=== PATIENT | female | born 1995 | race Caucasian/White ===

== ENCOUNTER 2017-05-09 14:19 | Emergency (ER) | payer BC ==
[2017-05-09 15:05] VITALS: BP 118/71
--- NOTE | 2017-05-09 16:32 | UC ---
Terrance Callahan Nilda, scribed for Smooth Kelly MD on 05/09/17 at 1545 . FLU HPI - HPI Summary HPI Summary: This patient is a 22 year old F [place] [facility] [place] friend with a chief complaint of constant flu-like symptoms for the past 6 days. Although most of the flu-like symptoms have resolved, pt states shes had a persistent productive cough (light yellow) for the past 4 days. Pt notes symptoms feel similar to when she had bronchitis. The patient rates the aching pain 3/10 in severity. Symptoms aggravated by nothing and alleviated by Dayquil, Nyquil, and Mucinex. Patient reports pain with deep inspiration, but denies fever and rashes. Pt states recent sick contact with friend last week. Pt denies . NKDA. - History of Current Complaint Chief Complaint: UCGeneralIllness Stated Complaint: COUGH CONGESTION Hx Obtained From: Patient Hx Last Menstrual Period: 04/22/17 Onset/Duration: Sudden Onset, Lasting Days, Still Present Severity Currently: Mild Pain Intensity: 3 Pain Scale Used: 0-10 Numeric - Allergy/Home Medications Allergies/Adverse Reactions: Allergies Allergy/AdvReac Type Severity Reaction Status Date / Time No Known Allergies Allergy Verified 01/25/16 12:38 PMH/Surg Hx/FS Hx/Imm Hx - Surgical History Surgical History: Yes Surgery Procedure, Year, and Place: TONSILLECTOMY - Family History Known Family History: Negative: Diabetes Family History: no family history of abdominal problems - Social History Alcohol Use: None Substance Use Type: None Smoking Status (MU): Never Smoked Tobacco - Immunization History Most Recent Influenza Vaccination: Doesn't get Vaccination Up to Date: Yes Review of Systems Constitutional: Other - negative fever Skin: Other - negative rash Respiratory: Cough, Other - pain with deep inspiration All Other Systems Reviewed And Are Negative: Yes Physical Exam Triage Information Reviewed: Yes Vital Signs: Initial Vital Signs Temp 98.1 F 05/09/17 15:00 Pulse 90 05/09/17 15:00 Resp 19 05/09/17 15:00 BP 118/71 05/09/17 15:00 Pulse Ox 99 05/09/17 15:00 Vital Signs Reviewed: Yes - Additional Comments Appearance: Well-appearing, Well-nourished Skin: Warm Eyes: Normal ENT: erythematous posterior oropharynx without tonsillar exudates Neck: Supple, nontender Respiratory: Clear to auscultation Cardiovascular: Normal S1, S2. No murmurs. Normal distal pulses in tibial and radial bilaterally. Abdomen: Soft, nontender, no organomegaly Musculoskeletal: Normal, Strength/ROM Intact Neurological: Normal, A&Ox3 Psychiatric: Normal General: No acute distress Diagnostics - Radiology CXR Radiology Interpretation Completed By: ED Physician - no acute abnormalities, no obvious consolidations Flu Course/Dx - Course Course Of Treatment: This patient is a 22 year old F presenting [place] [facility] [place] friend with a chief complaint of constant flu-like symptoms for the past 6 days. Although most of the flu-like symptoms have resolved, pt states shes had a persistent productive cough (light yellow) for the past 4 days. Pt notes symptoms feel similar to when she had bronchitis. The patient rates the aching pain 3/10 in severity. Symptoms aggravated by nothing and alleviated by Dayquil, Nyquil, and Mucinex. Patient reports pain with deep inspiration, but denies fever and rashes. Pt states recent sick contact with friend last week. Pt denies . NKDA. in no acute distress, pt outside of window for flu treatment, will be given symptomatic treatment for cough, and instructed to fu with pmd. vitals stable, agrees to and understnads dc isntructions - Differential Dx/Diagnosis Provider Diagnoses: influenza Discharge - Discharge Plan Condition: Stable Disposition: HOME Prescriptions: Acetaminop/Codeine 30 MG TAB* [Tylenol/Codeine 30 MG TAB*] 1 tab PO BID PRN #10 tab MDD 2 tabs PRN Reason: Cough Patient Education Materials: Influenza (ED) Referrals: Vu Barksdale MD [Primary Care Provider] - Additional Instructions: PLEASE TAKE MEDICATIONS DIRECTED PLEASE KEEP YOURSELF WELL HYDRATED WITH SMALL AMOUNTS OF FLUID MORE FREQUENTLY THROUGHOUT THE DAY PLEASE SEEK MEDICAL ATTENTION IMMEDIATELY IF YOU HAVE ANY WORSENING OR CONCERNING SYMPTOMS PLEASE MAKE AN APPOINTMENT TO BE SEEN BY YOUR PRIMARY CARE DOCTOR WITHIN 1 WEEK The documentation as recorded by the Terrance cruz Nilda accurately reflects the service I personally performed and the decisions made by me, Smooth Kelly MD.
--- NOTE | 2017-05-09 16:47 | RAD ---
INDICATION: Cough and fever. COMPARISON: There are no prior studies available for comparison. TECHNIQUE: Dual-energy PA and lateral views of the chest were obtained. FINDINGS: The heart is within normal limits in size. Mediastinal and hilar contours appear within normal limits. The lungs are clear. No pleural effusion is present. IMPRESSION: NO EVIDENCE FOR ACTIVE CARDIOPULMONARY DISEASE.
== END 2017-05-09 16:48 | disposition home or self-care (01) ==
LOC: UCEAST 14:19
DX: J11.1 Influenza due to unidentified influenza virus with other respiratory manifestations (principal)
CPT/HCPCS: 71046; 87502; 99212; G0463